=== PATIENT | male | born 1955 | race Caucasian/White ===

== ENCOUNTER → 2021-08-27 | Outpatient (CLI) | payer MEDICARE, OTHER ==
[~2021-08-27] MED LIST: ADVIL200 M1 PO; ASPIRIN81 MG GT; B-1100 MG GT; COZAAR50 MG PO; DAILY MULTIPLE1 EAC1 PO; DOCUSATE SODIU1 EACH GT; FOLIC ACID 1 MG1 MG GT; GLUCOPHAGE1000 MG PO; INVANZ 1 GM VIAL1 GM IV; IPRAT-ALBUT 0.5-3 ML INH; KLONOPIN0.5 MG PO; LACTULOSE20 GM/30 M GT; LEVEMIR100 UNIT/1 SC; LEXAPRO5 MG PO; LIPITOR TAB 2020 MG PO; LOVENOX SY40 MG/0.4 SQ; MYCOSTATIN POWD15 GM EXT; MYCOSTATIN100000 UTS GT; NOVOLOG 10100 UNITS1 INJ; PRECOSE 50 MG T50 MG GT; PRECOSE 50 MG T50 MG PO; PROTONIX40 MG GT; RITALIN TAB 1010 MG GT; WELLBUTRIN XL300 M1 PO; ZOFRAN8 MG PO; ZYRTEC10 M3 PO; [UNRECOGNIZED DRUG - OTHER] GT
== END ==
LOC: SLEEP 14:37
DX: G47.33 Obstructive sleep apnea (adult) (pediatric) (principal); G47.61 Periodic limb movement disorder
CPT/HCPCS: 95810